=== PATIENT | male | born 1960 | race Caucasian/White ===

== ENCOUNTER 2024-11-25 10:24 | Outpatient (CLI) | payer BC | END 2024-11-25 10:25 | disposition home or self-care (01) | LOC: BICRAD 10:24 | PROVIDERS: ATTEND Internal Medicine Rheumatology | DX: M79.604 Pain in right leg (principal); M45.7 Ankylosing spondylitis of lumbosacral region; M16.11 Unilateral primary osteoarthritis, right hip; M47.816 Spondylosis without myelopathy or radiculopathy, lumbar region | CPT/HCPCS: 72100 ==